=== PATIENT | female | born 1985 ===

== ENCOUNTER → 2023-12-05 | Outpatient (REF) | payer BC ==
[2023-12-05 12:33] LABS: FREE T4 1.56 NG/DL (0.89-1.76); THYROID STIMULATING HORMONE 0.193 uIU/ML (0.55-4.78)
[2023-12-05 13:21] LABS: FREE T3 3.6 PG/ML (2.3-4.2)
== END ==
LOC: M LABDRAWC 11:32
PROVIDERS: ATTEND Internal Medicine Endocrinology, Diabetes & Metabolism
DX: E03.9 Hypothyroidism, unspecified (principal)